=== PATIENT | male | born 1960 | race Caucasian/White ===

== ENCOUNTER → 2024-08-19 | Outpatient (CLI) | payer BC ==
[2024-08-19 09:09] LABS: BASO # 0.01 K/mm3 (0.02-0.10); EOS # 0.35 K/mm3 (0.04-0.40); HEMOGLOBIN 15.4 g/dL (13.5-18.0); LYMPH# 1.42 K/mm3 (1.50-4.00); MEAN CELL VOLUME 91 fl (78-100); MEAN CORPUSCULAR HEMOGLOBIN 30 pg (27-31); MEAN CORPUSCULAR HGB CONC 33 g/dL (33-37); MEAN PLATELET VOLUME 9.3 fl (7.4-10.4); MONO # 0.52 K/mm3 (0.20-0.80); NEU # 4.67 K/mm3 (1.40-6.50); PLATELET COUNT 233 K/mm3 (130-400); RED BLOOD COUNT 5.17 M/mm3 (4.20-5.60)
[2024-08-19 09:22] LABS: ALBUMIN 4.7 g/dL (3.4-4.8)
[2024-08-19 09:23] LABS: CALCIUM 9.3 mg/dL (8.3-10.5)
[2024-08-19 09:24] LABS: TOTAL PROTEIN 7.7 g/dL (6.2-8.1)
[2024-08-19 09:26] LABS: TOTAL BILIRUBIN 1.3 mg/dL (0.2-1.2)
== END ==
LOC: LAB 08:51
PROVIDERS: Internal Medicine
DX: Z12.5 Encounter for screening for malignant neoplasm of prostate (principal); E78.2 Mixed hyperlipidemia; R06.00 Dyspnea, unspecified